=== PATIENT | male | born 1935 | race Caucasian/White ===

== ENCOUNTER 2024-02-12 17:39 | Emergency (ER) | payer OTHER ==
[2024-02-12] MEDS ORDERED: Acetaminophen 325 MG Tab ONE (18:28)
[2024-02-12] MEDS: Acetaminophen 325 MG Tab PO ONE (18:32)
== END 2024-02-12 19:10 | disposition home or self-care (01) ==
LOC: LB.ED 17:39
DX: S09.90XA Unspecified injury of head, initial encounter (principal); S50.01XA Contusion of right elbow, initial encounter; I25.2 Old myocardial infarction; J44.9 Chronic obstructive pulmonary disease, unspecified; K21.9 Gastro-esophageal reflux disease without esophagitis; Z90.49 Acquired absence of other specified parts of digestive tract; Z79.899 Other long term (current) drug therapy; W01.0XXA Fall on same level from slipping, tripping and stumbling without subsequent striking against object, initial encounter; Y92.009 Unspecified place in unspecified non-institutional (private) residence as the place of occurrence of the external cause
CPT/HCPCS: 70450; 72125; 99283; A9270-GY